=== PATIENT | female | born 1960 | race American Indian/Alaskan Native ===

== ENCOUNTER 2016-04-30 05:00 | Emergency (ER) | payer MEDICARE ==
[2016-04-30 05:51] LABS: Eosinophils % (Auto) 1.7 % (0.0-4.3); Hematocrit 39.1 % (30.3-42.9); Hemoglobin 13.1 gm/dl (10.1-14.3); Mean Corpuscular HGB Conc 33 % (30-34); Mean Corpuscular Hemoglobin 28 pg (28-32); Mean Corpuscular Volume 84 fl (79-97); Platelet Count 186 K/mm3 (140-440); Red Blood Count 4.67 M/mm3 (3.65-5.03); White Blood Count 6.9 K/mm3 (4.5-11.0)
[2016-04-30 06:07] LABS: Alanine Aminotransferase 11 units/L (7-56); Albumin 3.7 g/dL (3.9-5); Albumin/Globulin Ratio 0.8 %; Alkaline Phosphatase 87 units/L (35-129); Anion Gap 20 mmol/L; BUN/Creatinine Ratio 11.42; Bilirubin,Total 0.8 mg/dL (0.1-1.2); Blood Urea Nitrogen 8 mg/dL (7-17); Calcium 9.5 mg/dL (8.4-10.2); Carbon Dioxide 26 mmol/L (22-30); Chloride 90.3 mmol/L (98-107); Lipase 24 units/L (13-60); Sodium 133 mmol/L (137-145); Total Protein 8.4 g/dL (6.3-8.2)
[2016-04-30 06:25] LABS: Glucose 509 mg/dL (65-100); Potassium 2.8 mmol/L (3.6-5.0)
--- NOTE | 2016-04-30 06:55 | Admit Criteria Form ---
Admission Criteria Documentation: DIABETES Clinical Indications for Admission to Inpatient Care (Place 'X' for any and all applicable criteria): Admission is indicated by presence of ALL (if I & II) or ANY ONE (if III or IV) of the following (1)(2)(3)(4): [ ]I. Diabetes is uncontrolled as indicated by ANY ONE of the following: [ ]a) Diabetic ketoacidosis as indicated by ALL of the following (8): [ ]i) Hyperglycemia (eg, plasma glucose greater than 200 mg/ dL (11.1 mmol/L)) [ ]ii) Acidosis (eg, arterial pH less than 7.30, serum bicarbonate level less than 15 mEq/L (mmol/L)) [ ]iii) Moderate ketonuria or ketonemia [ ]b) Hyperglycemic hyperosmolar state as indicated by ALL of the following(9)(10): [ ]i) Neurologic dysfunction (eg, stupor, coma, hemiparesis , seizure)(13) [ ]ii) Plasma glucose greater than 600 mg/dL (33.3 mmol/L) [ ]iii) Serum osmolality greater than 320 mOsm/kg (mmol/kg) [X]c) Severe signs or symptoms secondary to hyperglycemia indicated by ANY ONE of the following: [ ]i) Altered mental status(10) [ ]ii) Significant hypovolemia or dehydration [ ]iii) Intractable nausea or vomiting [ ]iv) Unexplained fever or severe infection [X]v) Severe electrolyte abnormality (eg, hypokalemia, hyperkalemia, hypernatremia) [ ]II. Management at other levels of care (Also use Diabetes: Observation Care as appropriate) is not feasible because of ANY ONE of the following: [ ]a) Condition was not adequately corrected with treatment at other levels of care. [ ]b) Treatment at other levels of care is not appropriate because of condition severity (eg, hyperosmolar coma). [ ]III. Contraindications and/or Inappropriate clinical situations for Observational Care in patients with Diabetes, when ANY ONE of the following is required: [ ]a) Patient require specific diagnostic workup or therapeutic intervention 22 [ ]b) Patient with abnormal vital signs or altered mental status 23 [ ]IV. General contraindications and/or Inappropriate clinical situations for Observational Care in patients with Diabetes, when ANY ONE of the following is required: [ ]a) Prediction of prolongation of LOS based on ANY ONE of the following may be considered as a contraindication for observational care 2, 3, 4, 5, 6, 7, 8, 9, 10, 11 [ ]i) Age > 65 yrs. [ ]ii) Patient arriving by ambulance [ ]iii) Patient with high acuity [ ]iv) Patient requiring vital sign monitoring [ ]v) Patient on IV medication [ ]b) Systolic blood pressures 180mmHg 3,12 [ ]c) Patient with altered mental status including delirium and other alteration of consciousness, (3) [ ]d) Patient whose discharge disposition will be to a halfway home or rehabilitation home should not be managed in Emergency Department Observation Unit. CMS rule requires 3 days hospital stay before such placement.3,13 [ ]e) Patient with failure to thrive due to broad array of etiologies 3,16,17 [ ]f) Inability to ambulate 3,14 Extended stay beyond goal length of stay may be needed for(3)(20): [ ]a) Treatment of precipitating causes [ ]b) Development of hypoglycemia [ ]c) Complications of treatment [ ]d) Complications of decompensated diabetes (eg, acute gastric dilatation, persistent metabolic or neurologic derangement) [ ]e) Active Comorbidities [ ]f) Older patients( 65 years or older) The original [employer] content created by [employer] has been revised. The portions of the content which have been revised are identified through the use of italic text or in bold,and [facility] has neither reviewed nor approved the modified material. All other unmodified content is copyright [employer] [facility] [employer]. Please see references footnoted in the original [employer] [facility] edition 2016
[2016-04-30] MEDS ORDERED: K-DUR PO ONE (07:03)
[2016-04-30] MEDS ORDERED: NACL 0.9% 1000 ML 1,000 ML IV ONE ×2 (07:03→09:01)
[2016-04-30] MEDS ORDERED: VALIUM IV ONE (07:09)
--- NOTE | 2016-04-30 07:16 | Emergency Department Report ---
ED General Adult HPI - General Chief complaint: Hyperglycemia Stated complaint: ABD PAIN/EMESIS/DIZZINESS Time Seen by Provider: 04/30/16 06:09 Source: patient, family Mode of arrival: Ambulatory Limitations: No Limitations - History of Present Illness Initial comments: 56-year-old female presents to the emergency Department with multiple complaints. Patient is complaining of lower back pain that she describes as aching. She also reports intermittent nausea, vomiting, diarrhea and generalized abdominal pain for the past several months. She states her feet are swollen and have sores on them and she is also stating that her biting her on her legs and back. Patient states that she thinks she is being poisoned. She states she recently had a conversation with her son regarding life insurance and began getting sick after this. She states she stopped taking her insulin one week ago because she thought it looked different than it usually does and she would get sick after taking it. She thinks somebody tampered with her insulin. There are no other complaints. -: Gradual, month(s) Location: back, abdomen Radiation: non-radiation Severity scale (0 -10): 4 Quality: sharp Consistency: intermittent Improves with: none Worsens with: none Associated Symptoms: nausea/vomiting Treatments Prior to Arrival: none - Related Data Previous Rx's Medication Instructions Recorded Last Taken Type traMADol [Ultram] 50 mg PO Q6HR PRN #20 tablet 04/30/16 Unknown Rx Allergies Allergy/AdvReac Type Severity Reaction Status Date / Time naproxen AdvReac Headache Verified 04/30/16 05:10 ED Review of Systems ROS: Stated complaint: ABD PAIN/EMESIS/DIZZINESS Other details as noted in HPI Comment: All other systems reviewed and negative Cardiovascular: edema Gastrointestinal: abdominal pain, nausea, vomiting, diarrhea Musculoskeletal: back pain Psychiatric: as per HPI ED Past Medical Hx - Past Medical History Previous Medical History?: Yes Hx Diabetes: Yes Additional medical history: Pt a poor Historian. Neuropathy - Surgical History Past Surgical History?: Yes Hx Cholecystectomy: Yes Additional Surgical History: Hyst, Tubal, Tubal Reversal, Hernia - Family History Family history: no significant - Social History Smoking Status: Never Smoker Substance Use Type: None - Medications Home Medications: Home Medications Medication Instructions Recorded Confirmed Last Taken Type traMADol [Ultram] 50 mg PO Q6HR PRN #20 tablet 04/30/16 Unknown Rx ED Physical Exam - General Limitations: No Limitations General appearance: alert, in no apparent distress - Head Head exam: Present: atraumatic, normocephalic - Eye Eye exam: Present: normal appearance, PERRL, EOMI - ENT ENT exam: Present: normal exam, normal orophraynx, mucous membranes moist - Neck Neck exam: Present: normal inspection, full ROM. Absent: tenderness - Respiratory Respiratory exam: Present: normal lung sounds bilaterally. Absent: respiratory distress - Cardiovascular Cardiovascular Exam: Present: regular rate, normal rhythm, normal heart sounds - GI/Abdominal GI/Abdominal exam: Present: soft, normal bowel sounds. Absent: distended, tenderness - Extremities Exam Extremities exam: Present: normal inspection, full ROM. Absent: tenderness - Back Exam Back exam: Present: normal inspection, full ROM. Absent: tenderness - Neurological Exam Neurological exam: Present: alert, oriented X3. Absent: motor sensory deficit - Psychiatric Psychiatric exam: Present: agitated, other (paranoid delusional thoughts expressed) - Skin Skin exam: Present: warm, dry, intact. Absent: rash, vesicles, abrasion ED Course Vital Signs 04/30/16 04/30/16 04/30/16 05:15 05:55 06:00 Temperature 97.6 F Pulse Rate 98 H 87 Respiratory 20 15 Rate Blood Pressure 140/74 140/74 Blood Pressure 158/100 [Right] O2 Sat by Pulse 100 99 Oximetry 04/30/16 04/30/16 04/30/16 06:10 06:20 06:26 Temperature 98 F Pulse Rate 81 86 83 Respiratory 15 15 18 Rate Blood Pressure 158/89 158/83 Blood Pressure 168/82 [Right] O2 Sat by Pulse 100 100 99 Oximetry 04/30/16 04/30/16 04/30/16 06:30 06:40 06:50 Temperature Pulse Rate 86 98 H 99 H Respiratory 17 13 13 Rate Blood Pressure 168/82 192/110 205/100 Blood Pressure [Right] O2 Sat by Pulse 96 79 L 97 Oximetry 04/30/16 04/30/16 04/30/16 07:00 07:10 07:20 Temperature Pulse Rate 83 84 86 Respiratory 21 13 10 L Rate Blood Pressure 177/120 165/92 165/103 Blood Pressure [Right] O2 Sat by Pulse 99 98 95 Oximetry 04/30/16 04/30/16 04/30/16 07:30 07:40 07:50 Temperature Pulse Rate 87 83 82 Respiratory 15 9 L 15 Rate Blood Pressure 167/93 164/69 153/82 Blood Pressure [Right] O2 Sat by Pulse 98 94 100 Oximetry 04/30/16 04/30/16 04/30/16 08:00 08:10 08:21 Temperature Pulse Rate 82 84 83 Respiratory 14 14 12 Rate Blood Pressure 160/89 184/97 184/97 Blood Pressure [Right] O2 Sat by Pulse 100 100 100 Oximetry 04/30/16 04/30/16 04/30/16 08:30 08:40 08:50 Temperature Pulse Rate 82 82 88 Respiratory 11 L 15 10 L Rate Blood Pressure 183/91 185/90 179/95 Blood Pressure [Right] O2 Sat by Pulse 100 100 100 Oximetry 04/30/16 04/30/16 04/30/16 09:00 09:10 09:20 Temperature Pulse Rate 90 91 H 86 Respiratory 11 L 13 14 Rate Blood Pressure 177/94 182/95 166/93 Blood Pressure [Right] O2 Sat by Pulse 100 100 100 Oximetry 04/30/16 04/30/16 04/30/16 09:30 09:40 09:51 Temperature Pulse Rate 84 84 100 H Respiratory 15 14 12 Rate Blood Pressure 166/90 175/89 167/120 Blood Pressure [Right] O2 Sat by Pulse 100 100 100 Oximetry 04/30/16 04/30/16 04/30/16 10:00 10:10 10:21 Temperature Pulse Rate 84 81 89 Respiratory 19 13 13 Rate Blood Pressure 183/105 194/101 180/93 Blood Pressure [Right] O2 Sat by Pulse 96 98 100 Oximetry 04/30/16 04/30/16 04/30/16 10:31 10:40 10:51 Temperature Pulse Rate 87 85 89 Respiratory 14 18 12 Rate Blood Pressure 180/93 175/96 175/96 Blood Pressure [Right] O2 Sat by Pulse 100 99 98 Oximetry 04/30/16 04/30/16 04/30/16 11:00 11:02 11:11 Temperature Pulse Rate 90 89 83 Respiratory 19 22 Rate Blood Pressure 150/88 175/91 151/82 Blood Pressure [Right] O2 Sat by Pulse 100 99 Oximetry 04/30/16 04/30/16 04/30/16 11:20 11:30 11:40 Temperature Pulse Rate 80 88 88 Respiratory 7 L 22 14 Rate Blood Pressure 167/93 177/96 160/86 Blood Pressure [Right] O2 Sat by Pulse 100 100 100 Oximetry 04/30/16 04/30/16 04/30/16 11:50 12:00 12:10 Temperature Pulse Rate 81 81 77 Respiratory 11 L 13 7 L Rate Blood Pressure 166/89 168/91 157/100 Blood Pressure [Right] O2 Sat by Pulse 100 100 100 Oximetry 04/30/16 04/30/16 12:21 12:31 Temperature Pulse Rate 81 92 H Respiratory 13 24 Rate Blood Pressure 146/84 146/84 Blood Pressure [Right] O2 Sat by Pulse 100 100 Oximetry - Reevaluation(s) Reevaluation #1: 04/30/16 07:15 Patient is exhibiting paranoid behavior exam. Hyperglycemia and hypokalemia noted on labs. Giving IV fluids, IV insulin, and oral potassium. Patient will need mental health evaluation. Reevaluation #2: 04/30/16 12:39 Patient has been evaluated by mental health and cleared for discharge. Patient has had 2 L of fluid and 2 doses of IV insulin. Blood sugar has improved to an acceptable level. Patient will be discharged home at this time to follow up with her primary care physician. ED Medical Decision Making - Lab Data Result diagrams: 04/30/16 05:34 04/30/16 05:34 - EKG Data -: EKG Interpreted by Me EKG shows normal: sinus rhythm, axis, intervals, QRS complexes, ST-T waves Rate: normal - EKG Data When compared to previous EKG there are: previous EKG unavailable Interpretation: normal EKG - Differential Diagnosis medication noncompliance, hyperglycemia, electrolyte antibiotic, psychosis Critical care attestation.: If time is entered above; I have spent that time in minutes in the direct care of this critically ill patient, excluding procedure time. ED Disposition Clinical Impression: Hyperglycemia, Hypokalemia Back pain Qualifiers: Back pain location: thoracic back pain Chronicity: acute Back pain laterality: bilateral Qualified Code(s): M54.6 - Pain in thoracic spine Disposition: DISCHARGED TO HOME OR SELFCARE Is pt being admited?: No Condition: Stable Instructions: Back Pain (ED), Diabetic Hyperglycemia (ED) Prescriptions: traMADol [Ultram] 50 mg PO Q6HR PRN #20 tablet PRN Reason: Pain Referrals: DAVIN VANN MD [Primary Care Provider] - 3-5 Days Time of Disposition: 12:41
[2016-04-30 07:32] LABS: Urine Drugs of Abuse Note Disclamer
[2016-04-30 07:45] LABS: Bilirubin,Urine NEG (Negative); Blood,Urine SM (Negative); Ketones,Urine 20 mg/dL (Negative); Leukocyte Esterase,Urine TR (Negative); Nitrite,Urine NEG (Negative); Urobilinogen,Urine < 2.0 mg/dL (<2.0)
[2016-04-30] MEDS ORDERED: ZESTRIL PO ONE (10:23)
[2016-04-30 12:38] VITALS: BP 146/84
[2016-04-30] MEDS ORDERED: ULTRAM PO ONE (12:38)
== END 2016-04-30 13:06 | disposition home or self-care (01) ==
LOC: ED 05:00
DX: E87.6 Hypokalemia (principal); E11.65 Type 2 diabetes mellitus with hyperglycemia; M54.6 Pain in thoracic spine
CPT/HCPCS: 36415; 80053; 80307; 81001; 82010; 82805; 82962; 83690; 84484; 85025; 93005; 93010; 96361; 96374; 96375; 96376; 99285; G0480; J3360; J7030; 80320; J1815